=== PATIENT | male | born 1935 | race Caucasian/White ===

== ENCOUNTER 2021-03-12 07:55 | Outpatient (CLI) | payer OTHER | END 2021-03-12 08:03 | disposition home or self-care (01) | LOC: NUCLEAR 07:55 | PROVIDERS: ATTEND Psychiatry & Neurology Clinical Neurophysiology | DX: G30.1 Alzheimer's disease with late onset (principal) | CPT/HCPCS: 78815; A9552 ==

== ENCOUNTER 2021-10-29 09:57 | Outpatient (CLI) | payer OTHER | END 2021-10-29 09:58 | disposition home or self-care (01) | LOC: NUCLEAR 09:57 | PROVIDERS: ATTEND Internal Medicine Cardiovascular Disease | DX: I87.2 Venous insufficiency (chronic) (peripheral) (principal) ==

== ENCOUNTER 2021-10-30 10:07 | Outpatient (CLI) | payer OTHER | END 2021-10-30 10:08 | disposition home or self-care (01) | LOC: NUCLEAR 10:07 | PROVIDERS: ATTEND Internal Medicine Cardiovascular Disease | DX: I73.9 Peripheral vascular disease, unspecified (principal) ==